=== PATIENT | male | born 1980 | race Caucasian/White ===

== ENCOUNTER 2016-12-11 09:41 | Outpatient (CLI) | payer MEDICAID ==
[2016-12-11 15:03] LABS: BASOPHILS % (AUTO) 0.2 %; EOSINOPHILS % (AUTO) 0.2 %; HCT - HEMATOCRIT 45.2 % (42.0-52.0); HGB - HEMOGLOBIN 15.3 g/dL (14.0-18.0); IMMATURE RETIC FRACTION 0.29; LYMPHOCYTES # (AUTO) 1.9 10^3/uL (1.5-3.5); LYMPHOCYTES % (AUTO) 21.2 %; MEAN CORPUSCULAR HEMOGLOBIN 30.2 pg (27.0-31.0); MEAN CORPUSCULAR HGB CONC 33.8 g/dL (32.0-36.0); MEAN CORPUSCULAR VOLUME 89.3 fL (80.0-94.0); MEAN PLATELET VOLUME 8.2 fL (7.4-11.4); MONOCYTES # (AUTO) 0.6 10^3/uL (0.0-1.0); MONOCYTES % (AUTO) 6.4 %; NEUTROPHILS # (AUTO) 6.5 10^3/uL (1.5-6.6); NUCLEATED RED BLOOD CELLS AUTO 0.1 /100WBC; RED BLOOD COUNT 5.06 10^6/uL (4.70-6.10); RED CELL DISTRIBUTION WIDTH 13.2 % (12.0-15.0); UNCORRECTED WHITE BLOOD COUNT 9.1 x10^3/uL; WHITE BLOOD COUNT 9.1 x10^3/uL (4.8-10.8)
[2016-12-11 16:32] LABS: FERRITIN 35.2 ng/mL (23.9-336.2)
[2016-12-11 16:48] LABS: THYROID STIMULATING HORMONE 3.16 uIU/mL (0.34-5.60)
[2016-12-11 17:59] LABS: ALBUMIN/GLOBULIN RATIO 1.4 (1.0-2.2); BILIRUBIN,TOTAL 0.6 mg/dL (0.2-1.0); BUN - BLOOD UREA NITROGEN 8 mg/dL (6-20); CARBON DIOXIDE - CO2 24 mmol/L (21-32); CHLORIDE 105 mmol/L (101-111); CHOL/HDL RATIO 4.6 (<5.0); CHOLESTEROL 172 mg/dL; CREATININE 0.9 mg/dL (0.6-1.2); GFR - MDRD 95 (>89); GLUCOSE 107 mg/dL (70-100); HDL CHOLESTEROL 37 mg/dL; IRON 93 ug/dL (45-182); POTASSIUM 4.1 mmol/L (3.5-5.0); SODIUM 136 mmol/L (135-145); TOTAL IRON BINDING CAPACITY 326 ug/dL (250-450); TRANSFERRIN 233 mg/dL (180-329)
[2016-12-11 18:20] LABS: LDL/HDL RATIO 3.3 (<3.6); TRIGLYCERIDES 66 mg/dL; VLDL CHOLESTEROL 13 mg/dL
== END 2016-12-11 09:42 | disposition home or self-care (01) ==
LOC: LAB.N 09:41
PROVIDERS: ATTEND Physician Assistant
DX: E16.2 Hypoglycemia, unspecified (principal)
CPT/HCPCS: 36415; 80050; 80061; 82728; 83540; 84466; 85044; 86803

== ENCOUNTER 2016-12-14 16:41 | Emergency (ER) | payer MEDICAID ==
[2016-12-14 16:49] VITALS: BP 125/90
[2016-12-14] MEDS ORDERED: ERYTHROMYCIN OPHTH OINT 1 GM TUBE ONE (17:37)
[2016-12-14] MEDS ORDERED: ERYTHROMYCIN OPHTH OINT 1 GM TUBE LEFTEYE STA (17:45)
[2016-12-14] MEDS ORDERED: IBUPROFEN 800 MG TABLET PO STA (17:48)
--- NOTE | 2016-12-14 17:48 | ED Physician Documentation ---
PD HPI OPHTHO - Stated complaint Stated Complaint: LT EY PX - Chief complaint Chief Complaint: Heent - History obtained from History obtained from: Patient - History of Present Illness Timing - onset: How many days ago (2) Location: Left Contributing factors: Wears glasses Similar symptoms before: Has not had sx before - Additional information Additional information: Patient is a 35-year-old male who presents with pain and swelling of his left lower eyelid. The symptoms started 2 days ago and became worse today. He denies history of similar symptoms in the past. He has been using Tylenol with slight improvement. He wears glasses, and has noticed no change in his visual acuity. Review of Systems Constitutional: denies: Fever Eyes: reports: Irritation. denies: Decreased vision Nose: denies: Congestion Throat: denies: Sore throat GI: denies: Nausea Skin: denies: Rash Neurologic: denies: Headache PD PAST MEDICAL HISTORY - Past Medical History Cardiovascular: None Respiratory: None Neuro: None Endocrine/Autoimmune: None Psych: Anxiety, Bipolar disorder, Post traumatic stress disorder Musculoskeletal: Chronic back pain - Past Surgical History Past Surgical History: No - Present Medications Home Medications: Ambulatory Orders Medication Instructions Recorded Confirmed Amitriptyline HCl 50 mg PO QPM #30 tablet 03/07/15 03/16/15 Naproxen 500 mg PO BID #30 tablet. 03/07/15 03/16/15 diazePAM [Valium] 5 - 10 mg PO TID PRN #15 tablet 03/16/15 predniSONE [Deltasone] 40 mg PO DAILY 5 Days 03/16/15 - Allergies Allergies/Adverse Reactions: Allergies Allergy/AdvReac Type Severity Reaction Status Date / Time lamotrigine [From Lamictal] Allergy Unknown Verified 03/07/15 13:41 - Social History Does the pt smoke?: Yes Smoking Status: Current every day smoker Does the pt drink ETOH?: No Does the pt have substance abuse?: Yes PD ED PE NORMAL - Vitals Vital signs reviewed: Yes (Borderline diastolic hypertension.) - General General: Alert and oriented X 3, Well developed/nourished - HEENT HEENT: Atraumatic, PERRL, EOMI, Ears normal, Pharynx benign, Other (There is swelling, erythema, and tenderness at the medial aspect of the left lower eyelid , consistent with a hordeolum. Conjunctiva is clear. The patient acuity is 20/ 15 in each eye, with his glasses in place. ) - Neck Neck: No adenopathy - Respiratory Respiratory: No respiratory distress - Derm Derm: No rash - Neuro Neuro: Alert and oriented X 3, Normal speech Results - Vitals Vitals: Vital Signs - 24 hr 12/14/16 16:48 Temperature 36.8 C Heart Rate 78 Respiratory 18 Rate Blood Pressure 125/90 H O2 Saturation 99 Oxygen O2 Source Room air PD MEDICAL DECISION MAKING - ED course Complexity details: considered differential, d/w patient ED course: the patient's presentation is most consistent with stye of the left lower eyelid. There is no clinical evidence to suggest periorbital cellulitis or conjunctivitis. Treatment in the emergency department included application of erythromycin ophthalmic ointment. The remainder of the tube was dispensed. I discussed with him the expected course of illness, treatment and outpatient followup, as well as potentially worrisome signs or symptoms that should prompt reevaluation in the emergency department. Departure - Departure Disposition: 01 Home, Self Care Clinical Impression: Hordeolum externum (stye) Qualifiers: Laterality: left Eyelid: lower Qualified Code(s): H00.015 - Hordeolum externum left lower eyelid Condition: Stable Instructions: ED Hordeolum Follow-Up: Esteban Hummel PA-C [Credentialed Staff Provider] - Comments: Apply erythromycin ophthalmic ointment in your left eye 4 times daily for the next 3 days. You can use Tylenol or ibuprofen as needed for discomfort. Follow up with your primary physician if not completely resolved within one week. Return to the emergency department if you develop increasing redness, swelling, pain, or otherwise worsening symptoms. Discharge Date/Time: 12/14/16 18:08
== END 2016-12-14 18:08 | disposition home or self-care (01) ==
LOC: ED 16:41
DX: H00.015 Hordeolum externum left lower eyelid (principal); F17.200 Nicotine dependence, unspecified, uncomplicated
CPT/HCPCS: 99283; J3490

== ENCOUNTER 2019-03-16 17:30 | Emergency (ER) | payer MEDICAID ==
[2019-03-16 17:35] VITALS: BP 123/83
[2019-03-16] MEDS ORDERED: CLINDAMYCIN 150 MG CAPSULE PO STA (17:44)
[2019-03-16] MEDS ORDERED: HYDROcod/ACET 5/325 Prepack 4 PO STA (17:44)
--- NOTE | 2019-03-16 17:46 | ED Physician Documentation ---
PD HPI HEENT - Stated complaint Stated Complaint: TOOTH PX - Chief complaint Chief Complaint: Heent - History obtained from History obtained from: Patient - History of Present Illness Timing - onset: Other (Worsening dental pain from a right maxillary molar for the last 3 days. No fevers or chills. No facial swelling. Went to see the dentist and he was referred to an oral surgeon for definitive treatment.) Review of Systems Constitutional: reports: Reviewed and negative Nose: reports: Reviewed and negative Cardiac: reports: Reviewed and negative PD PAST MEDICAL HISTORY - Past Medical History Cardiovascular: None Respiratory: None Endocrine/Autoimmune: None Psych: Anxiety, Bipolar disorder, Post traumatic stress disorder Musculoskeletal: Chronic back pain - Past Surgical History Past Surgical History: No - Present Medications Home Medications: Ambulatory Orders Medication Instructions Recorded Confirmed Amitriptyline HCl 50 mg PO QPM #30 tablet 03/07/15 03/16/15 Naproxen 500 mg PO BID #30 tablet. 03/07/15 03/16/15 diazePAM [Valium] 5 - 10 mg PO TID PRN #15 tablet 03/16/15 predniSONE [Deltasone] 40 mg PO DAILY 5 Days tablet 03/16/15 Clindamycin HCl [Clindamycin 300MG 300 mg PO Q6H #40 capsule 03/16/19 CAP] Hydrocodone/Acetaminophen 1 - 2 each PO Q6H PRN #14 tablet 03/16/19 [Hydrocodon-Acetaminophen 5-325] Ibuprofen [Motrin] 800 mg PO Q8H PRN #30 tablet 03/16/19 - Allergies Allergies/Adverse Reactions: Allergies Allergy/AdvReac Type Severity Reaction Status Date / Time lamotrigine [From Lamictal] Allergy Unknown Verified 03/16/19 17:32 - Social History Does the pt smoke?: Yes Smoking Status: Current every day smoker Does the pt drink ETOH?: No Does the pt have substance abuse?: Yes PD ED PE NORMAL - Vitals Vital signs reviewed: Yes - General General: Alert and oriented X 3, No acute distress - HEENT HEENT: Other (The last maxillary molar on the right has a large the on the lateral surface. There is no facial swelling, sublingual edema, no palpable abscess on the gumline.) - Neck Neck: Supple, no meningeal sign, No bony TTP - Neuro Neuro: Alert and oriented X 3, Normal speech Results - Vitals Vitals: Vital Signs - 24 hr 03/16/19 17:32 Temperature 36.7 C Heart Rate 75 Respiratory 16 Rate Blood Pressure 123/83 H O2 Saturation 97 Oxygen O2 Source Room air Departure - Departure Disposition: 01 Home, Self Care Clinical Impression: Pain due to dental caries Condition: Good Record reviewed to determine appropriate education?: Yes Instructions: ED Tooth Pain Prescriptions: Clindamycin HCl [Clindamycin 300MG CAP] 300 mg PO Q6H #40 capsule Hydrocodone/Acetaminophen [Hydrocodon-Acetaminophen 5-325] 1 - 2 each PO Q6H PRN #14 tablet PRN Reason: pain Ibuprofen [Motrin] 800 mg PO Q8H PRN #30 tablet PRN Reason: PAIN &/OR FEVER Comments: It is very important that you follow-up with a dentist. When it comes to dental problems like yours, the emergency department can only offer a short-term solution to your long-term problem. A couple of low cost options for dental care include: [facility] in [place], calls [phone] for an appointment Or [facility] in [place], call [phone] for an appointment.
== END 2019-03-16 17:55 | disposition home or self-care (01) ==
LOC: ED 17:30
DX: K02.9 Dental caries, unspecified (principal); F17.200 Nicotine dependence, unspecified, uncomplicated
CPT/HCPCS: 99282; 99283; A9270

== ENCOUNTER 2020-03-25 14:02 | Outpatient (CLI) | payer MEDICAID ==
[2020-03-25 19:03] LABS: BASOPHILS % (AUTO) 0.3 %; EOSINOPHILS # (AUTO) 0.1 10^3/uL (0.0-0.7); HGB - HEMOGLOBIN 15.2 g/dL (14.0-18.0); LYMPHOCYTES % (AUTO) 33.5 %; MEAN CORPUSCULAR HEMOGLOBIN 30.6 pg (27.0-31.0); MEAN CORPUSCULAR HGB CONC 33.3 g/dL (32.0-36.0); MEAN PLATELET VOLUME 9.9 fL (7.4-11.4); MONOCYTES # (AUTO) 0.5 10^3/uL (0.0-1.0); MONOCYTES % (AUTO) 7.7 %; NEUTROPHILS # (AUTO) 3.4 10^3/uL (1.5-6.6); NEUTROPHILS % (AUTO) 56.2 %; PLT - PLATELET COUNT 349 10^3/uL (130-450); RED BLOOD COUNT 4.97 10^6/uL (4.70-6.10)
[2020-03-25 19:19] LABS: RHEUMATOID FACTOR NEGATIVE (Negative)
[2020-03-25 19:43] LABS: ALBUMIN 4.5 g/dL (3.2-5.5); ALBUMIN/GLOBULIN RATIO 1.8 (1.0-2.2); ALKALINE PHOSPHATASE 70 IU/L (42-121); ALT ALANINE AMINOTRANSFERASE 49 IU/L (10-60); AST ASPARTATE AMINOTRANSFERASE 33 IU/L (10-42); BILIRUBIN,TOTAL 0.6 mg/dL (0.2-1.0); BUN - BLOOD UREA NITROGEN 9 mg/dL (6-20); CALCIUM 9.2 mg/dL (8.5-10.3); CARBON DIOXIDE - CO2 26 mmol/L (21-32); CHLORIDE 103 mmol/L (101-111); CREATININE 0.9 mg/dL (0.6-1.2); GLUCOSE 106 mg/dL (70-100); SODIUM 138 mmol/L (135-145)
[2020-03-25 20:33] LABS: CRP - C-REACTIVE PROTEIN < 1.0 mg/dL (0-1.0)
[2020-03-27 13:02] LABS: DNA (DS) ANTIBODY 1 IU/mL
[2020-03-27 14:47] LABS: ANA SCREEN NEGATIVE (NEGATIVE)
[2020-03-27 21:37] LABS: CYCLIC CITRULL PEPTIDE CCP IGG <16 UNITS
== END 2020-03-25 23:59 | disposition home or self-care (01) ==
LOC: LAB.WCP 14:02
PROVIDERS: ATTEND Physician Assistant
DX: M25.50 Pain in unspecified joint (principal)
CPT/HCPCS: 36415; 80053; 85025; 85651; 86038; 86140; 86200; 86225; 86430

== ENCOUNTER 2020-04-30 14:27 | Outpatient (CLI) | payer MEDICAID ==
--- NOTE | 2020-04-30 15:06 | XRAY Report ---
PROCEDURE: Spine Scoliosis Study 2-3V INDICATIONS: SCOLIOSIS TECHNIQUE: Frontal and lateral standing views of the spine acquired. COMPARISON: None. FINDINGS: There is very mild rightward curvature of lumbar spine centered at L3-4 level with Murray angle measure s 4 degrees. Moderate kyphosis centered at T9 level is seen. Bone morphology: No developmental anomalies of the ribs or spine. No compression fracture or spondy lolisthesis. 12 pairs of ribs are noted. 5 nonrib-bearing lumbar vertebrae are present. No suspicio us bony lesions. IMPRESSION: Very mild rightward curvature of lumbar spine centered at L3-4 level. Moderate kyphosis centered at a pproximately T9 level. No acute compression fracture or spondylolisthesis. No vertebral body deformit y. Reviewed by: Mikal Chen MD on 04/30/2020 3:05 PM PST Approved by: Mikal Chen MD on 04/30/2020 3:05 PM PST Station ID: [id number]
--- NOTE | 2020-04-30 15:06 | XRAY Report ---
PROCEDURE: Lumbar Spine Complete INDICATIONS: BACK PAIN SCOLIOSIS TECHNIQUE: 5 views of the lumbar spine were acquired. COMPARISON: None. FINDINGS: Bones: 5 [id number] vertebrae are present. There is normal bony alignment. No vertebral body compression fractures. No suspicious bony lesions. Oblique views shows no pars interarticularis defects. Soft tissues: Overlying bowel gas pattern is normal. No suspicious soft tissue calcifications. IMPRESSION: No compression fracture or spondylolisthesis. No pars defect. Reviewed by: Mikal Chen MD on 04/30/2020 3:05 PM PST Approved by: Mikal Chen MD on 04/30/2020 3:05 PM PST Station ID: [id number]
== END 2020-04-30 23:59 | disposition home or self-care (01) ==
LOC: DI.N 14:27
PROVIDERS: ATTEND Family Medicine
DX: M54.5 Low back pain (principal); M41.9 Scoliosis, unspecified; M40.204 Unspecified kyphosis, thoracic region

== ENCOUNTER 2020-05-24 15:47 | Outpatient (CLI) | payer MEDICAID ==
[2020-05-24 16:42] VITALS: BP 109/71
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
== END 2020-05-24 15:48 | disposition home or self-care (01) ==
LOC: SC 15:47
PROVIDERS: ATTEND Nurse Practitioner Family
DX: G47.10 Hypersomnia, unspecified (principal); G47.8 Other sleep disorders; R41.89 Other symptoms and signs involving cognitive functions and awareness; R06.83 Snoring; R06.81 Apnea, not elsewhere classified; E66.3 Overweight; Z68.26 Body mass index [BMI] 26.0-26.9, adult
CPT/HCPCS: 99203; 99212

== ENCOUNTER 2020-07-01 14:00 | Outpatient (CLI) | payer MEDICAID | END 2020-07-01 14:01 | disposition home or self-care (01) | LOC: SC 14:00 | PROVIDERS: ATTEND Nurse Practitioner Family | DX: R09.02 Hypoxemia (principal); G47.10 Hypersomnia, unspecified; R00.0 Tachycardia, unspecified; E66.3 Overweight; Z68.26 Body mass index [BMI] 26.0-26.9, adult | CPT/HCPCS: 95806 ==

== ENCOUNTER 2020-07-16 12:12 | Outpatient (CLI) | payer MEDICAID ==
--- NOTE | 2020-07-16 12:30 | SLEEP CARE CONSULTATION ---
Information from patient questionnaire entered by Genie Cedeno. I have reviewed and concur with the information entered by Genie Cedeno. This document represents the service I personally performed and the decisions made by , Liza Acuna ARNP. History of Present Illness Service Date and Time: 07/16/2020 1200 Initial [place] Sleepiness Scale score: 7 (in 2019) Additional HPI information: FADI CERDA returns via Telehealth visit today for follow up and results of the recently performed home sleep study. The patient was informed of the following findings: No significant sleep- disordered breathing, with an AHI of 0.6/hr and pako SaO2 of 83%. His pulse oximetry signal was unreliable during the study making this a fair study. I explained the pathophysiology behind obstructive sleep apnea. Patient does not have sleep apnea and was advised how weight gain could increase the risk of developing sleep apnea in the future. Patient has moderate snoring. Snoring can be reduced by weight loss. Weight loss is best achieved with diet consult. Patient instructed to contact PCP for referral. Snoring can also be treated with an oral appliance from a dentist. Advised to check insurance coverage. In addition, an ENT evaluation can be do to see if other treatment is indicated. Patient counseled not drink alcohol less than 4 hours before bedtime as it can increase snoring and apnea. Patient was cautioned about risks of drowsy driving until sleepiness symptoms resolve. Sleep Study - Results Type of Sleep Study: Home sleep study Prior sleep studies: No Polysomnography/Home Sleep Study results: Physician Impression: The quality of the study is fair due to partial loss of pulse oximetry signal. The length of the study is adequate (> 240 minutes). Please also see the tabulated and graphic data. 1. No significant sleep-disordered breathing, with an AHI of 0.6/hr and pako SaO2 of 83%. During the study, the patient had 3 apneas (3 obstructive, 0 central, 0 mixed) and 0 hypopneas. The longest episode lasted 26.0 seconds. The patient slept mostly supine (supine AHI was 0.3 and non-supine, 1.16). 2. Hypoxemia (ICD-10 R09.02), mild, with the lowest oxygen saturation of 83 % and 50.5 minutes with SaO2 under 90%. Baseline oxygen saturation was normal (Average oxygen saturation was 92%). However, the pulse oximetry signal was unreliable. 3. Tachycardia, with maximum recorded heart rate of 194 beats per minute but the pulse oximetry signal was unreliable. Allergies and Home Medications Drug allergies reviewed: Yes (lamotrigine) Home medication list reviewed: Yes (started Methylphenidate ER 20 mg daily) Review of Systems Review of systems same as previous: Yes (no changes) Physical Exam Vital signs obtained and entered by: Telehealth visit to reduce exposure during Covid pandemic Height: 5 ft 8 in Impression and Plan 1. Snoring but no significant sleep disordered breathing. Patient advised that often weight loss will reduce snoring as well as apnea risk. An oral appliance can also be used for snoring. This would require a dental consultation. Patient cautioned not to use other online appliances as can cause bite issues. A list of accredited dentists in area and one local dentist who makes oral appliances given. Patient is advised to check if insurance will cover. An ENT consult can also be helpful to determine if any other treatment is an option. 2. Bruxism. Patient asking about his bruxism and any treatment that is recommended. I advised him to see a dentist to have a mouth guard made for him. I cautioned him that those found over the counter can cause damage to bit and should be avoided. Patient requesting list of dentist in area that may make one of these for him. We will send him the list of dentists in area for him to call and find one who will take his insurance. * Follow up with dentist for history of bruxism and need of oral appliance * Avoid alcohol consumption near bedtime * The patient is cautioned about driving until sleepiness is completely resolved. * Return as needed. Visit Type: Telehealth Video Video Type: [employer] Patient Location: Home Location of Provider: Office Patient agrees and consents to this telehealth visit type: Yes Patient agrees to have their insurance billed: Yes Time Spent with Patient (minutes): 13 Provider Statement: I spent 100% of the Telehealth Video Call with the patient with greater than 50% spent counseling the patient and coordination of care.
== END 2020-07-16 12:13 | disposition home or self-care (01) ==
LOC: SC 12:12
PROVIDERS: ATTEND Nurse Practitioner Family
DX: R06.83 Snoring (principal); G47.63 Sleep related bruxism

== ENCOUNTER 2020-09-28 08:00 | Outpatient (CLI) | payer MEDICAID | END 2020-09-28 23:59 | disposition home or self-care (01) | LOC: LAB.WCP 08:00 | PROVIDERS: ATTEND Nurse Practitioner Psychiatric/Mental Health | DX: F41.1 Generalized anxiety disorder (principal); F43.12 Post-traumatic stress disorder, chronic; F33.1 Major depressive disorder, recurrent, moderate; F90.0 Attention-deficit hyperactivity disorder, predominantly inattentive type | CPT/HCPCS: 36415; 81599; 82040; 84270; 84402; 84403 ==

== ENCOUNTER 2021-03-08 08:00 | Outpatient (CLI) | payer MEDICAID ==
[2021-03-08 17:49] LABS: BASOPHILS % (AUTO) 0.1 %; EOSINOPHILS # (AUTO) 0.1 10^3/uL (0.0-0.7); EOSINOPHILS % (AUTO) 0.9 %; HCT - HEMATOCRIT 48.4 % (42.0-52.0); HGB - HEMOGLOBIN 16.1 g/dL (14.0-18.0); LYMPHOCYTES # (AUTO) 1.8 10^3/uL (1.5-3.5); LYMPHOCYTES % (AUTO) 17.2 %; MEAN CORPUSCULAR HEMOGLOBIN 30.6 pg (27.0-31.0); MEAN CORPUSCULAR HGB CONC 33.3 g/dL (32.0-36.0); MONOCYTES # (AUTO) 0.7 10^3/uL (0.0-1.0); MONOCYTES % (AUTO) 6.8 %; NEUTROPHILS # (AUTO) 7.8 10^3/uL (1.5-6.6); NEUTROPHILS % (AUTO) 74.7 %; PLT - PLATELET COUNT 362 10^3/uL (130-450); RED BLOOD COUNT 5.26 10^6/uL (4.70-6.10); RED CELL DISTRIBUTION WIDTH 12.6 % (12.0-15.0); WHITE BLOOD COUNT 10.4 x10^3/uL (4.8-10.8)
[2021-03-08 18:07] LABS: ALBUMIN 4.7 g/dL (3.2-5.5); ALBUMIN/GLOBULIN RATIO 1.8 (1.0-2.2); BILIRUBIN,TOTAL 0.4 mg/dL (0.2-1.0); CALCIUM 9.3 mg/dL (8.5-10.3); CREATININE 0.7 mg/dL (0.6-1.2); POTASSIUM 4.3 mmol/L (3.5-5.0); TOTAL PROTEIN 7.3 g/dL (6.7-8.2)
[2021-03-10 13:47] LABS: HSV 1 IGG TYPE SPECIFIC AB <0.90 index
== END 2021-03-08 23:59 | disposition home or self-care (01) ==
LOC: LAB.WCP 08:00
PROVIDERS: ATTEND Family Medicine
DX: R10.31 Right lower quadrant pain (principal); N48.9 Disorder of penis, unspecified
CPT/HCPCS: 36415; 80053; 81599; 85025; 86695; 86696

== ENCOUNTER 2021-05-26 08:00 | Outpatient (CLI) | payer MEDICAID ==
[2021-05-26 18:00] LABS: BASOPHILS % (AUTO) 0.2 %; EOSINOPHILS # (AUTO) 0.1 10^3/uL (0.0-0.7); EOSINOPHILS % (AUTO) 0.9 %; HCT - HEMATOCRIT 46.7 % (42.0-52.0); HGB - HEMOGLOBIN 15.8 g/dL (14.0-18.0); LYMPHOCYTES % (AUTO) 15.5 %; MEAN CORPUSCULAR HGB CONC 33.8 g/dL (32.0-36.0); MEAN CORPUSCULAR VOLUME 91.7 fL (80.0-94.0); MEAN PLATELET VOLUME 9.9 fL (7.4-11.4); MONOCYTES # (AUTO) 0.8 10^3/uL (0.0-1.0); MONOCYTES % (AUTO) 6.1 %; NEUTROPHILS % (AUTO) 76.9 %; PLT - PLATELET COUNT 360 10^3/uL (130-450); RED BLOOD COUNT 5.09 10^6/uL (4.70-6.10); RED CELL DISTRIBUTION WIDTH 12.9 % (12.0-15.0)
[2021-05-26 18:20] LABS: ALBUMIN 4.6 g/dL (3.2-5.5); ALBUMIN/GLOBULIN RATIO 1.5 (1.0-2.2); ALKALINE PHOSPHATASE 63 IU/L (42-121); ALT ALANINE AMINOTRANSFERASE 28 IU/L (10-60); AMYLASE 79 U/L (28-100); AST ASPARTATE AMINOTRANSFERASE 25 IU/L (10-42); BILIRUBIN,TOTAL 0.4 mg/dL (0.2-1.0); BUN - BLOOD UREA NITROGEN 10 mg/dL (6-20); CALCIUM 9.1 mg/dL (8.5-10.3); CARBON DIOXIDE - CO2 24 mmol/L (21-32); CHLORIDE 105 mmol/L (101-111); CHOL/HDL RATIO 3.5 (<5.0); CHOLESTEROL 174 mg/dL; CREATININE 0.7 mg/dL (0.6-1.2); GFR - MDRD 124 (>89); GLUCOSE 90 mg/dL (70-100); HDL CHOLESTEROL 50 mg/dL; LDL CHOLESTEROL,CALCULATED 110 mg/dL; LDL/HDL RATIO 2.2 (<3.6); LIPASE 32 U/L (22-51); SODIUM 138 mmol/L (135-145); TOTAL PROTEIN 7.6 g/dL (6.7-8.2); TRIGLYCERIDES 71 mg/dL; VLDL CHOLESTEROL 14 mg/dL
[2021-05-26 18:29] LABS: THYROID STIMULATING HORMONE 2.28 uIU/mL (0.34-5.60)
[2021-05-26 22:57] LABS: CHLAMYDIA TRACHOMATIS DNA NEGATIVE (NEGATIVE); NEISSERIA GONORRHOEAE DNA NEGATIVE (NEGATIVE)
[2021-05-28 09:31] LABS: HEPATITIS B SURFACE ANTIGEN NON-REACTIVE (NON-REACTIVE); HEPATITIS C ANTIBODY NON-REACTIVE (NON-REACTIVE)
== END 2021-05-26 23:59 | disposition home or self-care (01) ==
LOC: LAB.WCP 08:00
PROVIDERS: ATTEND Internal Medicine
DX: R10.31 Right lower quadrant pain (principal); Z11.3 Encounter for screening for infections with a predominantly sexual mode of transmission; F31.9 Bipolar disorder, unspecified
CPT/HCPCS: 36415; 80050; 80061; 82150; 83690; 83721; 86704; 86803; 87340; 87491; 87591; 87661

== ENCOUNTER 2021-06-18 13:04 | Outpatient (CLI) | payer MEDICAID ==
--- NOTE | 2021-06-18 14:38 | XRAY Report ---
PROCEDURE: Hip w/Pelvis 1V RT INDICATIONS: RIGHT HIP PAIN WITH AMBULATION ASSESS FOR DJD TECHNIQUE: AP pelvis with lateral view(s) of the right hip(s). COMPARISON: None. FINDINGS: Bones: No fractures or dislocations. Pelvic ring appears intact. No suspicious bony lesions. No a ppreciable hip joint space narrowing. No erosions. Soft tissues: The visualized bowel gas pattern is normal. No suspicious soft tissue calcifications. IMPRESSION: Unremarkable exam. Reviewed by: She Craven MD on 06/18/2021 2:36 PM PST Approved by: She Craven MD on 06/18/2021 2:36 PM PST Station ID: [id number]
== END 2021-06-18 13:05 | disposition home or self-care (01) ==
LOC: DI.N 13:04
PROVIDERS: ATTEND Internal Medicine
DX: M25.551 Pain in right hip (principal)

== ENCOUNTER 2021-06-28 14:06 | Outpatient (CLI) | payer MEDICAID ==
--- NOTE | 2021-06-28 16:33 | Ultrasound Report ---
PROCEDURE: Pelvic Limited or F/U INDICATIONS: ABD PAIN RLQ TECHNIQUE: Real-time transabdominal scanning was performed of the pelvic organs, with image documentation. COMPARISON: None. FINDINGS: Limited ultrasound examination of pelvis near right inguinal region shows no evidence of hernia. No s oft tissue mass or fluid collection. Incidentally noted of enlarged prostate gland and measures 4.6 x 4.4 x 4.9 cm in size and volume of 3 9 cc. IMPRESSION: 1. No right inguinal hernia. 2. Incidentally noted of enlarged prostate gland as above. Reviewed by: Mikal Chen MD on 06/28/2021 4:31 PM PST Approved by: Mikal Chen MD on 06/28/2021 4:31 PM PST Station ID: [id number]
== END 2021-06-28 14:07 | disposition home or self-care (01) ==
LOC: DI 14:06
PROVIDERS: ATTEND Internal Medicine
DX: R10.31 Right lower quadrant pain (principal)

== ENCOUNTER 2021-08-17 19:13 | Outpatient (CLI) | payer MEDICAID | END 2021-08-17 19:14 | disposition left against medical advice (07) | LOC: EMS 19:13 | DX: R00.2 Palpitations (principal); F41.9 Anxiety disorder, unspecified ==

== ENCOUNTER 2022-05-09 14:55 | Outpatient (CLI) | payer MEDICAID ==
--- NOTE | 2022-05-09 16:51 | MRI Report ---
PROCEDURE: CERVICAL SPINE WO INDICATIONS: CERVICAL DJD, OSTEOPENIA TECHNIQUE: Noncontrast sagittal T1 spin echo and T2 fast spin echo, sagittal STIR, foraminal oblique sagittal T2 fast spin echo, and axial gradient echo or T2 fast spin echo through the cervical spine. COMPARISON: None. FINDINGS: Image quality: Excellent. Alignment and Curvature: There is loss of normal cervical lordosis. Roughly 2 mm of retrolisthesis o f C4 on C5 and C5 on C6. Bone Marrow: Marrow demonstrates normal overall signal. Mild reactive signal throughout the endplat es of the cervical spine. Spinal Cord: Visualized spinal cord has normal size and signal. No cerebellar tonsillar herniation. Paraspinous Soft Tissues: No paravertebral masses. Prevertebral soft tissues are normal in thicknes s. C2-C3: Congenital canal stenosis. Mild disc height loss and desiccation. Mild canal stenosis. No for aminal stenosis. C3-C4: Congenital canal stenosis. Mild disc desiccation and diffuse disc bulge. Mild facet and unco vertebral hypertrophy bilaterally. Moderate canal stenosis. Moderate bilateral foraminal stenosis. C4-C5: Congenital canal stenosis. Moderate disc desiccation. Mild diffuse disc bulge. Mild facet and uncovertebral hypertrophy bilaterally. Severe canal stenosis. Mild cord flattening. Severe right and moderate left foraminal stenosis. Right C5 nerve root compression. C5-C6: Congenital canal stenosis. Moderate disc desiccation. Mild diffuse disc bulge with superimpos ed left paracentral protrusion. Mild facet and uncovertebral hypertrophy bilaterally. Severe canal st enosis. Moderate cord flattening. Moderate right and severe left foraminal stenosis. Left C6 nerve ro ot compression. C6-C7: Congenital canal stenosis. Mild disc desiccation and diffuse disc bulge. Mild facet and uncov ertebral hypertrophy bilaterally. Moderate canal stenosis. Moderate bilateral foraminal stenosis. C7-T1: Mild disc height loss and desiccation. Mild diffuse disc bulge. Congenital canal stenosis. Mi ld facet and uncovertebral hypertrophy bilaterally. Mild canal stenosis. Mild bilateral foraminal kendra nosis. IMPRESSION: 1. Diffuse congenital canal stenosis with superimposed disc and facet disease, as well as uncovertebr al hypertrophy. 2. Multilevel canal stenoses, worst at C4-C5 and C5-C6 where there is associated cord flattening. 3. Multilevel foraminal stenoses, worst at C4-C5 and C5-C6 where there is associated intraforaminal n erve root compression. Recommend correlation with clinical symptoms to ascertain relevance of these f indings. Reviewed by: Walt Dominguez MD on 05/09/2022 4:50 PM PST Approved by: Walt Dominguez MD on 05/09/2022 4:50 PM PST Station ID: [id number]
--- NOTE | 2022-05-09 17:19 | DEXA Report ---
PROCEDURE: Dexa Spine and/or Hip INDICATIONS: CERVICAL DJD, OSTEOPENIA TECHNIQUE: Dual energy x-ray absorptiometry (DXA) was performed on a [employer] System. Regions measur ed are the AP Spine, femoral neck, and if needed forearm. COMPARISON: None. FINDINGS: Lumbar Spine: Bone Mineral Density 1.096 g/cm/cm,T score -1.0 Left Femoral Neck: Bone Mineral Density 0.930 g/cm/cm, T score -1.2 Left Hip: Bone Mineral Density 0.953 g/cm/cm,T score -0.9 (T score greater or equal to -1.0: NORMAL) (T score from -1.1 to -2.4: OSTEOPENIA) (T score less than or equal to -2.5 to: OSTEOPOROSIS) Impression: No osteopenia or osteoporosis of the lumbar spine or left hip. Patients with diagnosis of osteoporosis or osteopenia should have regular bone mineral density assess ment. For those eligible for Medicare, routine testing is allowed once every 2 years. Testing frequ ency can be increased for patients who have rapidly progressing disease or for those who are receivin g medical therapy to restore bone mass. Reviewed by: Malu Ridley MD on 05/09/2022 5:18 PM PST Approved by: Malu Ridley MD on 05/09/2022 5:18 PM PST Station ID: [id number]
== END 2022-05-09 14:56 | disposition home or self-care (01) ==
LOC: DI 14:55
PROVIDERS: ATTEND Internal Medicine
DX: M85.88 Other specified disorders of bone density and structure, other site (principal); M47.812 Spondylosis without myelopathy or radiculopathy, cervical region; M48.02 Spinal stenosis, cervical region; M50.33 Other cervical disc degeneration, cervicothoracic region; M48.03 Spinal stenosis, cervicothoracic region

== ENCOUNTER 2022-06-01 12:31 | Outpatient (CLI) | payer MEDICAID ==
--- NOTE | 2022-06-01 17:53 | MRI Report ---
PROCEDURE: LUMBAR SPINE WO INDICATIONS: LUMBAR DISC DEGENERATION TECHNIQUE: Noncontrast sagittal T1 spin echo and T2 fast echo, sagittal STIR, axial T1 and T2 fast spin echo thr ough the lumbar spine. In cases with scoliosis, additional coronal T2 fast spin echo may be performe d. COMPARISON: Correlation is made with prior plain films, 04/30/2020, 03/07/2015 FINDINGS: Image quality: Excellent. Alignment and Curvature: There is normal bony alignment. Bone Marrow: Marrow is of normal overall signal. No acute vertebral body compression fractures. Spinal Cord: Conus medullaris terminates at the L1 level. Visualized cord demonstrates normal signa l and size. Paraspinous Soft Tissues: No paravertebral masses. T11-T12: The disc height and disc signal are well preserved. Mild disc bulge is seen. There is a mild central/left disc protrusion. No significant T12-L1: Normal in appearance. L1-L2: Normal in appearance. L2-L3: The disc height and disc signal are well preserved. Mild disc bulge is seen. Mild to mode rate facet hypertrophy is seen. Mild bilateral neural foraminal narrowing is seen. Mild central c anal narrowing is seen. L3-L4: The disc height and disc signal are well preserved. Mild to moderate disc bulge is seen. Mil d to moderate facet hypertrophy can be seen. Moderate bilateral neuroforaminal narrowing is seen at t his level, left worse than right. Mild central canal narrowing is seen. L4-L5: The disc height and disc signal are well preserved. Moderate disc bulge is seen at this lev el. There is a mild central disc protrusion. Moderate facet hypertrophy is seen. At least moderate bilateral neuroforaminal narrowing can be seen, right worse than left. Compression is seen upon the exiting nerve roots. Moderate central canal narrowing is seen. L5-S1: The disc height and disc signal are well preserved. Mild to moderate disc bulge is seen. The re is a slight central disc protrusion. Mild to moderate facet hypertrophy is seen. Moderate bilatera l neuroforaminal narrowing can be seen, right worse than left. No significant central canal narrowing is seen. IMPRESSION: Multiple levels of premature lower lumbar spine degenerative change can be seen. Reviewed by: Troy Holbrook MD on 06/01/2022 4:52 PM [place] Approved by: Troy Holbrook MD on 06/01/2022 4:52 PM [place] Station ID: [id number]
== END 2022-06-01 12:32 | disposition home or self-care (01) ==
LOC: DI 12:31
PROVIDERS: ATTEND Internal Medicine
DX: M51.24 Other intervertebral disc displacement, thoracic region (principal); M47.816 Spondylosis without myelopathy or radiculopathy, lumbar region; M48.061 Spinal stenosis, lumbar region without neurogenic claudication; M51.27 Other intervertebral disc displacement, lumbosacral region; M47.817 Spondylosis without myelopathy or radiculopathy, lumbosacral region; M48.07 Spinal stenosis, lumbosacral region
CPT/HCPCS: 85610

== ENCOUNTER 2022-08-24 22:55 | Emergency (ER) | payer MEDICAID ==
[2022-08-24 23:05] VITALS: BP 138/88
--- NOTE | 2022-08-24 23:11 | ED Physician Documentation ---
PD HPI NECK PAIN - Stated complaint Stated Complaint: NECK,SHOULDER PAIN - Chief complaint Chief Complaint: Back Pain - History obtained from History obtained from: Patient - Additional information Additional information: HPI from patient. Patient c/o neck pain with episodic muscle spasms at posterior base of neck. He has intermittent right hand numbness that correlates with the height of the worst neck pain. Symptoms have been worsening over past week, although he has had ongoing similar symptoms for past few months with outpatient w/u including MRI neck few months ago. His current prescriptions include mobic gabapentin, and xanalflex. These had been providing adequate relief until past 2-3 days and tonight pain became intolerable. PD PAST MEDICAL HISTORY - Past Medical History Cardiovascular: None Respiratory: None Endocrine/Autoimmune: None Psych: Anxiety, Bipolar disorder, Post traumatic stress disorder Musculoskeletal: Chronic back pain - Past Surgical History Past Surgical History: No - Present Medications Home Medications: Ambulatory Orders Medication Instructions Recorded Confirmed Amitriptyline HCl 50 mg PO QPM #30 tablet 03/07/15 03/16/15 Naproxen 500 mg PO BID #30 tablet. 03/07/15 03/16/15 diazePAM [Valium] 5 - 10 mg PO TID PRN #15 tablet 03/16/15 predniSONE [Deltasone] 40 mg PO DAILY 5 Days tablet 03/16/15 Clindamycin HCl [Clindamycin 300MG 300 mg PO Q6H #40 capsule 03/16/19 CAP] Hydrocodone/Acetaminophen 1 - 2 each PO Q6H PRN #14 tablet 03/16/19 [Hydrocodon-Acetaminophen 5-325] Ibuprofen [Motrin] 800 mg PO Q8H PRN #30 tablet 03/16/19 Oxycodone HCl/Acetaminophen 1 - 2 each PO Q6H PRN #14 tablet 08/24/22 [Percocet 5-325 mg Tablet] diazePAM [Valium] 5 - 10 mg PO TID PRN #15 tablet 08/24/22 - Allergies Allergies/Adverse Reactions: Allergies Allergy/AdvReac Type Severity Reaction Status Date / Time lamotrigine [From Lamictal] Allergy Unknown Verified 08/24/22 23:05 - Social History Does the pt smoke?: Yes Smoking Status: Current every day smoker Does the pt drink ETOH?: No Does the pt have substance abuse?: Yes PD ED PE NORMAL - Vitals Vital signs reviewed: Yes - General General: Alert and oriented X 3, Well developed/nourished, Other (NAD at rest, apears to have painful discomfort with movement of head/neck) - HEENT HEENT: Moist mucous membranes, Pharynx benign - Neck Neck: Supple, no meningeal sign, No bony TTP - Cardiac Cardiac: RRR, No murmur - Respiratory Respiratory: No respiratory distress, Clear bilaterally - Neuro Neuro: No motor deficit (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 HPI is c/w ongoing cervical radiculopathy for which he is being followed up in outpatient setting, recently with exacerbation. He is given percocet, valium, and rx for these medications (e-prescribed to his pharmacy of choice) Departure - Departure Disposition: 01 Home, Self Care Clinical Impression: Cervical radiculopathy Condition: Good Instructions: ED Cervical Radiculopathy Follow-Up: Darnell Garcia MD [Primary Care Provider] - Prescriptions: Oxycodone HCl/Acetaminophen [Percocet 5-325 mg Tablet] 1 - 2 each PO Q6H PRN #14 tablet PRN Reason: pain diazePAM [Valium] 5 - 10 mg PO TID PRN #15 tablet PRN Reason: Spasms Comments: Prescriptions for diazepam (Valium) and Percocet (narcotic/opiate pain medication) have been electronically submitted to the [facility] pharmacy in [place]. The purpose of the Valium is its effect as a powerful skeletal muscle relaxant; in other words, it should help with the muscle spasms. The drawbacks of this particular medication include addiction potential as well as the side effects which typically and predominantly are drowsiness and sedation. The Percocet is a strong pain medication which also has similar drawbacks including addiction potential, sedation, as well as potential for nausea and/or vomiting. In combination, these medications can be quite powerful in effect and side effect. As long as you take them as prescribed, and do not take any other sedating medications or substances such as alcohol, and that you do not drive while under the effects of these medications, they will hopefully provide adequate relief of your symptoms until this episode improves and/or you are able to be reevaluated by one of your doctors. I am prescribing a short course of narcotic pain medication for you. These are potentially dangerous and addictive medications that should be used carefully. These medications may constipate you. Take an rgem-ich-msgkfiw stool softener (docusate) twice daily with plenty of water while taking these medications. If you go 24 hours without a bowel movement, take dlin-qvx-tuysyet miralax, per package instructions. Do not drink or drive while taking these medications. If you received narcotic or sedating medications while in the emergency department, do not drive for 24 hours. Store this medication in a safe, secure place and out of reach of children. It is a violation of federal law to give or sell this medication to another person or to use in a manner other than prescribed. The ED will not refill narcotic prescriptions, including prescriptions lost or stolen. To dispose of unwanted medications: 1. [facility] at [address] in [place] has a medication drop box. They accept prescription medications (in pill form) Sunday through Sunday 9:00 a.m. to 5:00 p.m. 2. The [facility] [employer] accepts prescription medications (in pill form only) for disposal year round. Call for more information. 3. Contact the [facility] for the next [facility] sponsored prescription drug collection event. , [phone], or [phone]; Discharge Date/Time: 08/25/22 00:00
[2022-08-24] MEDS ORDERED: oxyCODONE/ACET 5/325 Prepack 4 PO STA (23:36)
[2022-08-24] MEDS ORDERED: diazePAM 5 MG TABLET PO STA (23:36)
== END 2022-08-25 | disposition home or self-care (01) ==
LOC: ED 22:55
DX: M54.12 Radiculopathy, cervical region (principal); F17.200 Nicotine dependence, unspecified, uncomplicated
CPT/HCPCS: 99282; 99283; A9270

== ENCOUNTER 2022-10-25 19:26 | Emergency (ER) | payer MEDICAID ==
--- NOTE | 2022-10-25 19:44 | ED Physician Documentation ---
PD HPI URI - Stated complaint Stated Complaint: SORE THROAT - Chief complaint Chief Complaint: Heent - History obtained from History obtained from: Patient - Additional information Additional information: 41-year-old male presents with sore throat as well as body aches and subjective fever. Symptoms started suddenly today when he woke up. He was feeling fine yesterday. He noticed some white patches on his tonsils today and was concerned that it was thrush.He also noted some bumps on the back of his tongue. He has no cough or nasal congestion, no chest pain or difficulty breathing, no abdominal pain nausea vomiting or diarrhea, no rash. No known sick contacts. He has not attempted any medication including ibuprofen or Tylenol for his symptoms. PD PAST MEDICAL HISTORY - Past Medical History Past Medical History: Yes Cardiovascular: None Respiratory: None Endocrine/Autoimmune: None Psych: Anxiety, Bipolar disorder, Post traumatic stress disorder Musculoskeletal: Chronic back pain - Past Surgical History Past Surgical History: No - Present Medications Home Medications: Ambulatory Orders Medication Instructions Recorded Confirmed Amitriptyline HCl 50 mg PO QPM #30 tablet 03/07/15 03/16/15 diazePAM [Valium] 5 - 10 mg PO TID PRN #15 tablet 03/16/15 Gabapentin [Neurontin] 300 mg PO HS 10/25/22 Meloxicam 7.5 mg PO DAILY 10/25/22 Methylphenidate HCl [Ritalin] 20 mg PO DAILY 10/25/22 - Allergies Allergies/Adverse Reactions: Allergies Allergy/AdvReac Type Severity Reaction Status Date / Time lamotrigine [From Lamictal] Allergy Unknown Verified 10/25/22 19:43 - Social History Does the pt smoke?: Yes Smoking Status: Current every day smoker Does the pt drink ETOH?: No Does the pt have substance abuse?: Yes - Immunizations Immunizations are current?: Yes - POLST Patient has POLST: No PD ED PE NORMAL - Vitals Vital signs reviewed: Yes - General General: Alert and oriented X 3, No acute distress, Well developed/nourished - HEENT HEENT: Atraumatic, Ears normal, Moist mucous membranes, Pharynx benign (Slight redness, no exudate, no swelling, uvula midline, symmetric) - Neck Neck: Supple, no meningeal sign, No adenopathy - Cardiac Cardiac: RRR, No murmur - Respiratory Respiratory: No respiratory distress, Clear bilaterally - Derm Derm: Normal color, Warm and dry, No rash Results - Vitals Vitals: Vital Signs - 24 hr 10/25/22 19:36 Temperature 36.5 C Heart Rate 74 Respiratory 18 Rate Blood Pressure 122/81 H O2 Saturation 99 Oxygen O2 Source Room air - Labs Labs: Laboratory Tests 10/25/22 19:40 Group A Strep Rapid Negative PD Medical Decision Making - ED course Complexity details: reviewed results, considered differential, d/w patient ED course: 41-year-old male presented with sore throat that started today along with subjective fever and body aches. He is very well-appearing on physical exam, he has mild redness in the throat, no significant exudate, no tonsillar swelling, uvula is midline. He has no signs of peritonsillar retropharyngeal abscess. Strep test is negative and I have low suspicion for strep but this was sent for culture. I suspect this is a viral pharyngitis and recommended supportive measures as well as return precautions. Departure - Departure Disposition: 01 Home, Self Care Clinical Impression: Viral pharyngitis Condition: Good Instructions: ED Pharyngitis Viral Comments: Your rapid strep test was negative today. We do send this for culture and will call you tomorrow only if the culture returns positive. Here sore throat is very likely viral, most sore throats are viral induced. They last 7 to 10 days and resolve on their own. You can take ibuprofen, Tylenol, throat lozenges or throat spray if desired. These are all [id number]-nfh-bvbmdxv. I also recommend warm tea with honey and lemon which can soothe the throat as well. The pain can be quite significant and you can have swelling, white patches and bumps on the back of your throat even with a viral sore throat. These tend to resolve in the next week or so. If you have worsening symptoms, return to the ER..
[2022-10-25 19:45] VITALS: BP 122/81
[2022-10-25 20:02] LABS: RAPID STREP SCREEN Negative (Negative)
== END 2022-10-25 20:11 | disposition home or self-care (01) ==
LOC: ED 19:26
DX: J02.8 Acute pharyngitis due to other specified organisms (principal); F17.200 Nicotine dependence, unspecified, uncomplicated
CPT/HCPCS: 87070; 87077; 87430; 99283

== ENCOUNTER 2022-12-09 08:00 | Outpatient (CLI) | payer MEDICAID | END 2022-12-09 23:56 | disposition home or self-care (01) | LOC: LAB.N 08:00 | PROVIDERS: ATTEND Nurse Practitioner | DX: J02.9 Acute pharyngitis, unspecified (principal) | CPT/HCPCS: 87070 ==

== ENCOUNTER 2023-01-30 14:27 | Outpatient (CLI) | payer MEDICAID ==
[2023-01-30 21:12] LABS: CHLAMYDIA TRACHOMATIS DNA NEGATIVE (NEGATIVE); NEISSERIA GONORRHOEAE DNA NEGATIVE (NEGATIVE); TRICHOMONAS VAGINALIS DNA NEGATIVE (NEGATIVE)
[2023-01-31 03:09] LABS: HBsAG SCREEN Negative (Negative)
[2023-01-31 06:10] LABS: HCV AB Non Reactive (Non Reactive); HIV SCREEN 4TH GENERATION Non Reactive (Non Reactive)
== END 2023-01-30 14:28 | disposition home or self-care (01) ==
LOC: LAB.N 14:27
PROVIDERS: ATTEND Internal Medicine
DX: Z11.3 Encounter for screening for infections with a predominantly sexual mode of transmission (principal)
CPT/HCPCS: 86592; 86704; 86803; 87340; 87389; 87491; 87591; 87661

== ENCOUNTER 2023-02-11 16:35 | Emergency (ER) | payer MEDICAID ==
[2023-02-11 16:52] VITALS: BP 136/76; O2SAT 98
--- NOTE | 2023-02-11 17:38 | ED Physician Documentation ---
PD HPI NECK PAIN - Stated complaint Stated Complaint: R SHOULDER PX, BACK PX - Chief complaint Chief Complaint: Ext Problem - History obtained from History obtained from: Patient - History of Present Illness Timing - onset: How many days ago (5) Timing - duration: Days (5) Timing - details: Gradual onset, Still present Location: Mid, Lower, Right Quality: Pain, Spasm, Sharp, Similar to prior episodes Associated symptoms: No: Fever, Weakness, Numbness, Incontinent of urine, Unable to urinate, Hematuria, Incontinent of stool Improves with: Rest, Position, Meds Worsened by: Movement, Twisting, Palpation Contributing factors: Other (might have slept on it wrong) Similar symptoms before: Diagnosis (cervical radiculopathy) Recently seen: Not recently seen - Additional information Additional information: Brandan Ibrahim is a 42-year-old male who is disabled for cervical dystonia and today he is in the emergency department complaining of a 5-day history of pain and spasm in his neck on the right side that started with his rhomboids. He feels that he woke up and thinks that he may have slept on his arm wrong. He has had progression of his symptoms daily. He has some numbness of his right hand. He is not otherwise ill. Review of Systems Constitutional: denies: Fever, Chills Nose: denies: Rhinorrhea / runny nose, Congestion Throat: denies: Sore throat Cardiac: denies: Chest pain / pressure, Palpitations Respiratory: denies: Dyspnea, Cough GI: denies: Abdominal Pain, Nausea, Vomiting, Constipation, Diarrhea : denies: Dysuria, Frequency Skin: denies: Rash Musculoskeletal: reports: Neck pain, Back pain, Extremity pain Neurologic: reports: Numbness (to the right hand). denies: Generalized weakness, Focal weakness PD PAST MEDICAL HISTORY - Past Medical History Cardiovascular: None Respiratory: None Endocrine/Autoimmune: None Psych: Anxiety, Bipolar disorder, Post traumatic stress disorder Musculoskeletal: Chronic back pain - Past Surgical History Past Surgical History: No - Present Medications Home Medications: Ambulatory Orders Medication Instructions Recorded Confirmed Amitriptyline HCl 50 mg PO QPM #30 tablet 03/07/15 03/16/15 diazePAM [Valium] 5 - 10 mg PO TID PRN #15 tablet 03/16/15 Gabapentin [Neurontin] 300 mg PO HS 05/24/23 Meloxicam 7.5 mg PO DAILY 10/25/22 Methylphenidate HCl [Ritalin] 20 mg PO DAILY 10/25/22 Penicillin V Potassium 500 mg PO Q6HR #40 tablet 10/28/22 Oxycodone HCl/Acetaminophen 1 - 2 each PO Q6H PRN #14 tablet 02/11/23 [Percocet 5-325 mg Tablet] - Allergies Allergies/Adverse Reactions: Allergies Allergy/AdvReac Type Severity Reaction Status Date / Time lamotrigine [From Lamictal] Allergy Unknown Verified 02/11/23 16:49 - Social History Does the pt smoke?: Yes Smoking Status: Current every day smoker Does the pt drink ETOH?: No Does the pt have substance abuse?: Yes - Immunizations Immunizations are current?: Yes - POLST Patient has POLST: No PD ED PE NORMAL - Vitals Vital signs reviewed: Yes (hypertensive mild ) - General General: Alert and oriented X 3, No acute distress, Well developed/nourished - HEENT HEENT: Atraumatic, PERRL, EOMI - Neck Neck: Supple, no meningeal sign, No bony TTP, Other (fair ROM while talking ) - Respiratory Respiratory: No respiratory distress - Back Back: No CVA TTP, Other (tenderness to the paraspinous muscles of the right rhomboid. ) - Derm Derm: Normal color, Warm and dry, No rash - Extremities Extremities: No deformity, No edema - Neuro Neuro: Alert and oriented X 3, back sewer 2-12 intact, No motor deficit, Normal speech, Other (subjective numbness to the right hand) Eye Opening: Spontaneous Motor: Obeys Commands Verbal: Oriented GCS Score: 15 - Psych Psych: Normal mood, Normal affect Results - Vitals Vitals: Vital Signs - 24 hr 02/11/23 16:49 Temperature 37.1 C Heart Rate 70 Respiratory 16 Rate Blood Pressure 136/76 H O2 Saturation 98 Oxygen O2 Source Room air PD Medical Decision Making - ED course Complexity details: considered differential, d/w patient, d/w family ED course: 42-year-old male with acute cervical radiculopathy and pain is administered dexamethasone and Toradol in the emergency department. He had inadequate pain relief with this and he was administered IM dilaudid. We will place him on some pain medication. He has some methocabamol at home. He has follow-up with a pain specialist, his primary care and his neurologist. Departure - Departure Disposition: 01 Home, Self Care Clinical Impression: Cervical radiculopathy Condition: Stable Instructions: ED Cervical Radiculopathy Follow-Up: Darnell Garcia MD [Primary Care Provider] - Prescriptions: Cyclobenzaprine [Flexeril] 10 mg PO TID PRN #20 tablet PRN Reason: Spasms Oxycodone HCl/Acetaminophen [Percocet 5-325 mg Tablet] 1 - 2 each PO Q6H PRN #14 tablet PRN Reason: pain Comments: Kenroy, today it looks like you have cervical radiculopathy causing this pain in the back, neck and numbness in your right hand. We have given you some dexamethasone which should help with this over the next 1 to 2 days. This will likely take a week or more to improve. I have E scribed some pain medication for you to the [facility] in [place].
[2023-02-11] MEDS: DEXAMETHASONE 10 MG/ML VIAL PO STA (17:44)
[2023-02-11] MEDS: CHERRY SYRUP 10 ML UDC PO ONE (17:44)
[2023-02-11] MEDS: KETOROLAC 60 MG/2 ML VIAL IM STA (17:44)
[2023-02-11] MEDS: HYDROmorphone 1 MG/ML CARPUJECT IM STA (18:31)
[2023-02-11] MEDS: ONDANSETRON ODT 4 MG TABLET TL STA (18:31)
[2023-02-11] MEDS: oxyCODONE/ACET 5/325 Prepack 4 PO STA (18:32)
== END 2023-02-11 18:53 | disposition home or self-care (01) ==
LOC: ED 16:35
DX: M54.12 Radiculopathy, cervical region (principal); F17.200 Nicotine dependence, unspecified, uncomplicated; Z79.899 Other long term (current) drug therapy
CPT/HCPCS: 96372; 99283

== ENCOUNTER 2023-03-19 15:36 | Outpatient (CLI) | payer MEDICAID | END 2023-03-19 15:37 | disposition home or self-care (01) | LOC: LAB.N 15:36 | PROVIDERS: ATTEND Physician Assistant | DX: Z11.3 Encounter for screening for infections with a predominantly sexual mode of transmission (principal) | CPT/HCPCS: 86780 ==

== ENCOUNTER 2023-05-15 02:04 | Emergency (ER) | payer MEDICAID ==
[2023-05-15 02:24] VITALS: BP 148/106; O2SAT 96
--- NOTE | 2023-05-15 02:44 | ED Physician Documentation ---
PD HPI MALE - Stated complaint Stated Complaint: MALE - Chief complaint Chief Complaint: General - History obtained from History obtained from: Patient - Additional information Additional information: HPI from patient. Patient woke from sleep at approximately 2 AM this morning with left testicular pain and swelling. The pain was initially severe but has rapidly, spontaneously improved and he had minimal discomfort by the time of this HPI. He also notes left testicular swelling which also was more pronounced initially but has nearly resolved by the time of this H+P. Denies injury (although distant/remote h/o left testicular injury decades ago), denies frequency, dysuria. He has noticed "sediment" (per patient) in his urinalysis provided in ED triage. Denies fever. There are no exacerbating nor ameliorating factors. Denies penile discharge. He is sexually active although with one partner. PD PAST MEDICAL HISTORY - Past Medical History Past Medical History: Yes Cardiovascular: None Respiratory: None Endocrine/Autoimmune: None Psych: Anxiety, Bipolar disorder, Post traumatic stress disorder Musculoskeletal: Chronic back pain Other Past Medical History: Cervical stenosis - Past Surgical History Past Surgical History: No - Present Medications Home Medications: Ambulatory Orders Medication Instructions Recorded Confirmed Amitriptyline HCl 50 mg PO QPM #30 tablet 03/07/15 03/16/15 diazePAM [Valium] 5 - 10 mg PO TID PRN #15 tablet 03/16/15 Gabapentin [Neurontin] 300 mg PO HS 10/25/22 05/15/23 Meloxicam 7.5 mg PO DAILY 10/25/22 Methylphenidate HCl [Ritalin] 20 mg PO DAILY 10/25/22 05/15/23 Penicillin V Potassium 500 mg PO Q6HR #40 tablet 10/28/22 Oxycodone HCl/Acetaminophen 1 - 2 each PO Q6H PRN #14 tablet 02/11/23 [Percocet 5-325 mg Tablet] DULoxetine [Cymbalta] 20 mg PO DAILY 05/15/23 05/15/23 Doxycycline [Vibramycin] 100 mg PO BID #19 tablet 05/15/23 HYDROcod/ACETAM 5/325 [[place] 5/325] 10 mg PO PRN PRN 05/15/23 05/15/23 methocarbamoL [Methocarbamol] 750 mg PO PRN PRN 05/15/23 05/15/23 valACYclovir [Valtrex] 500 mg PO TID 05/15/23 05/15/23 - Allergies Allergies/Adverse Reactions: Allergies Allergy/AdvReac Type Severity Reaction Status Date / Time lamotrigine [From Lamictal] Allergy Unknown Verified 05/15/23 02:23 humphrey pepper AdvReac Unknown Verified 05/15/23 02:30 - Social History Does the pt smoke?: Yes Smoking Status: Current every day smoker Does the pt drink ETOH?: No Does the pt have substance abuse?: Yes - Immunizations Immunizations are current?: Yes - POLST Patient has POLST: No PD ED PE NORMAL - Vitals Vital signs reviewed: Yes - General General: Alert and oriented X 3, No acute distress, Well developed/nourished PD ED PE EXPANDED - Male Male : Normal Exam, Circumcised, Testes descended dangelo, Normal lie/cremastaric. No: Skin lesions, Discharge, Tenderness Results - Vitals Vitals: Oxygen O2 Source Room air PD Medical Decision Making - ED course Complexity details: considered differential, d/w patient ED course: No obvious scrotal / hemiscrotal swelling on exam, no erythema, and left testicle is essentially nontender except minimal tenderness posterior aspect, s/o epidydimitis. No UTI symptoms, no discharge and he is sexually active but monogamous. Will treat empirically for epidydimitis; given infection is a possible etiology, will give 500mg IM rocephin and 100mg BID doxycycline (10-day course). Return precautions discussed, follow up with PMD recommended (3-5 days). Testicular torsion is considered. Unfortunately, US is not in house/available at this time at [facility]. 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 While he could torse/de-torse, he was in ED for over 2.5 hours and did not have recurrence of pain (and US would not be expected to help in diagnosing testicular torsion if blood flow was not constricted at time of the study, and, further, blood flow constriction would be associated with significant pain). I discussed with patient that usually a testicular US would be performed in this scenario, but given the resolution of his symptoms, I do not see the benefit/necessity of holding him in ED another 3 hours awaiting US nor transferring him to an off-island ED for the study. I emphasized to him that he needs to immediately return to this (or nearest) ED at any time he feels recurrence of the pain, even if it is not as severe as initial episode. Departure - Departure Disposition: 01 Home, Self Care Clinical Impression: Testicular pain, left Condition: Good Instructions: ED Epididymitis Prescriptions: Doxycycline [Vibramycin] 100 mg PO BID #19 tablet Comments: I am treating you empirically for epididymitis. This means that the diagnosis has not been conclusively made, but your symptoms scription and exam findings are consistent with epididymitis. Within this discharge packet are instructions that review the diagnosis and treatment of epididymitis. As we discussed, one of the tests that often is diagnostic for epididymitis is a testicular ultrasound. Unfortunately, ultrasound is not available at this time (ultrasound hours at this hospital start at 6 AM). Certainly, if your symptoms persist, you can always return to the emergency department for reevaluation. It is very important that you return immediately if your pain returns. You were given a one-time dose of an antibiotic (ceftriaxone) in the ER as well as the first dose of an oral antibiotic (doxycycline). This combination covers sexually-transmitted infections (specifically, gonorrhea and chlamydia) very well. The results of tests for these organisms is pending. Although this would not be the most likely explanation for your symptoms, these antibiotics will cover that possibility. If you test positive for 1 or both of these organisms, you should receive a phone call from the emergency department. You will not receive a phone call if the test is negative. I have electronically submitted a prescription for a 10-day course of the oral antibiotic to [facility] pharmacy in [place]. Forms: PCP List Discharge Date/Time: 05/15/23 04:41
[2023-05-15] MEDS ORDERED: cefTRIAXone 500 MG VIAL IM STA (03:24)
[2023-05-15] MEDS ORDERED: LIDOCAINE 1% 2 ML VIAL MC ONE (03:24)
[2023-05-15] MEDS ORDERED: DOXYCYCLINE 100 MG TABLET PO STA (03:25)
== END 2023-05-15 04:41 | disposition home or self-care (01) ==
LOC: ED 02:04
DX: N50.812 Left testicular pain (principal)
CPT/HCPCS: 96372; 99283; A9270

== ENCOUNTER 2023-07-24 13:14 | Outpatient (CLI) | payer MEDICAID ==
[2023-07-24 18:13] LABS: CREATININE 0.9 mg/dL (0.6-1.3)
== END 2023-07-24 13:15 | disposition home or self-care (01) ==
LOC: LAB.N 13:14
PROVIDERS: ATTEND Physician Assistant Medical
DX: R31.29 Other microscopic hematuria (principal)
CPT/HCPCS: 36415; 82565; 84520

== ENCOUNTER 2023-08-24 08:21 | Outpatient (CLI) | payer MEDICAID ==
[2023-08-24 12:41] LABS: BUN - BLOOD UREA NITROGEN 13 mg/dL (6-20); CALCIUM 9.8 mg/dL (8.5-10.3); CARBON DIOXIDE - CO2 27 mmol/L (21-32); CHLORIDE 105 mmol/L (101-111); CRP - C-REACTIVE PROTEIN < 0.5 mg/dL (<0.5); GFR - MDRD 82 (>89); GLUCOSE 119 mg/dL (74-104); SODIUM 137 mmol/L (135-145)
== END 2023-08-24 08:22 | disposition home or self-care (01) ==
LOC: LAB.N 08:21
PROVIDERS: ATTEND Physician Assistant
DX: M48.062 Spinal stenosis, lumbar region with neurogenic claudication (principal); G89.29 Other chronic pain; M13.0 Polyarthritis, unspecified; M54.2 Cervicalgia; M54.9 Dorsalgia, unspecified
CPT/HCPCS: 36415; 80048; 85651; 86038; 86140; 86200